=== PATIENT | female | born 1975 | race African-American/Black ===

== ENCOUNTER 2017-08-30 14:14 | Emergency (ER) | payer OTHER ==
[2017-08-30 14:52] LABS: Basophils % (Auto) 0.9 % (0.0-1.8); Eosinophils % (Auto) 4.4 % (0.0-4.3); Hematocrit 31.3 % (30.3-42.9); Hemoglobin 9.7 gm/dl (10.1-14.3); Mean Corpuscular HGB Conc 31 % (30-34); Mean Corpuscular Volume 74 fl (79-97); Platelet Count 148 K/mm3 (140-440); Red Blood Count 4.23 M/mm3 (3.65-5.03); Red Cell Distribution Width 16.1 % (13.2-15.2); White Blood Count 4.5 K/mm3 (4.5-11.0)
[2017-08-30 14:59] LABS: Mean Corpuscular Hemoglobin 23 pg (28-32)
[2017-08-30 15:01] LABS: INR 0.96 (0.87-1.13)
[2017-08-30 15:10] LABS: Alanine Aminotransferase 29 units/L (7-56); Albumin 3.6 g/dL (3.9-5); Albumin/Globulin Ratio 1.2 %; Alkaline Phosphatase 43 units/L (35-129); Anion Gap 17 mmol/L; BUN/Creatinine Ratio 11; Bilirubin,Total < 0.20 mg/dL (0.1-1.2); Blood Urea Nitrogen 9 mg/dL (7-17); Calcium 8.3 mg/dL (8.4-10.2); Carbon Dioxide 25 mmol/L (22-30); Chloride 103.7 mmol/L (98-107); Glucose 93 mg/dL (65-100); Potassium 4.3 mmol/L (3.6-5.0); Sodium 141 mmol/L (137-145); Total Protein 6.6 g/dL (6.3-8.2)
[2017-08-30 15:23] LABS: Bacteria,Urine 1+ /HPF (Negative); Bilirubin,Urine NEG (Negative); Blood,Urine NEG (Negative); Ketones,Urine TR mg/dL (Negative); Leukocyte Esterase,Urine NEG (Negative); Mucus,Urine FEW /HPF; Nitrite,Urine NEG (Negative); Protein,Urine <15 mg/dL mg/dL (Negative); Urobilinogen,Urine < 2.0 mg/dL (<2.0)
--- NOTE | 2017-08-30 15:47 | XRay Report ---
FINAL REPORT EXAM: XR CHEST ROUTINE 2V HISTORY: possible Sepsis,cough TECHNIQUE: Two views of the chest Comparison: None FINDINGS: Heart size is upper limits normal. There is mild bilateral reticular coarsening of the interstitium with peribronchial thickening but no discrete focal infiltrate. There are no pleural effusions. The imaged axial skeleton is unremarkable. There prominent nipple shadows. IMPRESSION: Peribronchial thickening and coarsening of the interstitium compatible with bronchitis and suggestive of interstitial lung disease/possible mild bronchiectasis. Heart size upper limits normal. Lungs are mildly hyperlucent and hyperexpanded compatible with either early emphysema, large voluntary inspiratory effort or air trapping.
--- NOTE | 2017-08-30 19:34 | Emergency Department Report ---
HPI - General Chief Complaint: Fever Time Seen by Provider: 08/30/17 18:54 - HPI HPI: This is a 41-year-old female who presents to the emergency department from home with complaint of a 3 to four-day history of a intermittent fever, headache and some body aches. She has a mild sore throat. She says that her temperature reached a MAXIMUM TEMPERATURE of 104 Fahrenheit but that it will go down with ibuprofen and/or Tylenol but then returns. She went to a urgent care yesterday and says that she had a negative flu test at that time. She denies any past medical history. No recent travel or sick contacts at home. She denies any cough, diarrhea, chest or abdominal pain, dysuria, vaginal bleeding or discharge. Regarding her headache, it is generalized in nature and she denies any associated blurry vision, slurred speech or any neurological deficits. ED Past Medical Hx - Past Medical History Previous Medical History?: No - Surgical History Additional Surgical History: tubal - Social History Smoking Status: Never Smoker Substance Use Type: None ED Review of Systems ROS: Stated complaint: FEVER Other details as noted in HPI Constitutional: fever. denies: weakness Eyes: denies: eye pain, eye discharge, vision change ENT: throat pain. denies: ear pain Respiratory: denies: cough, shortness of breath, wheezing Cardiovascular: denies: chest pain, palpitations Gastrointestinal: denies: abdominal pain, nausea, diarrhea Genitourinary: denies: urgency, dysuria, discharge Musculoskeletal: denies: back pain, joint swelling, arthralgia Skin: denies: rash, lesions Neurological: headache. denies: numbness, paresthesias Physical Exam - Physical Exam Vital Signs: Vital Signs 08/30/17 08/30/17 14:17 18:56 Temperature 98.6 F 99.6 F Pulse Rate 96 H Respiratory 18 Rate Blood Pressure 108/50 O2 Sat by Pulse 100 Oximetry Physical Exam: GENERAL: The patient is well-developed well-nourished. HENT: Normocephalic. Atraumatic. Patient has moist mucous membranes. Oropharynx is clear without tonsillar perjury, erythema or exudates. EYES: Extraocular motions are intact. Pupils equal reactive to light bilaterally. No nystagmus. NECK: Supple. Trachea is midline. No meningitic signs. CHEST/LUNGS: Clear to auscultation. There is no respiratory distress noted. HEART/CARDIOVASCULAR: Regular. There is no tachycardia. There is no murmur. ABDOMEN: Abdomen is soft, nontender. Patient has normal bowel sounds. There is no abdominal distention. SKIN: Skin is warm and dry. NEURO: The patient is awake, alert, and oriented. The patient is cooperative. The patient has no focal neurologic deficits. The patient has normal speech. Cranial nerves II through XII grossly intact. MUSCULOSKELETAL: There is no tenderness or deformity. There is no limitation range of motion. There is no evidence of acute injury. ED Course Vital Signs 08/30/17 08/30/17 14:17 18:56 Temperature 98.6 F 99.6 F Pulse Rate 96 H Respiratory 18 Rate Blood Pressure 108/50 O2 Sat by Pulse 100 Oximetry ED Medical Decision Making - Lab Data Result diagrams: 08/30/17 14:35 08/30/17 14:35 - EKG Data -: EKG Interpreted by Me EKG shows normal: sinus rhythm, axis, intervals, QRS complexes, ST-T waves Rate: normal - EKG Data When compared to previous EKG there are: previous EKG unavailable Interpretation: normal EKG - Radiology Data Radiology results: report reviewed, image reviewed interpreted by me: Chest x-ray does not show any acute process. There are no pleural effusions, obvious pneumonia and there is no pneumothorax. CT of the head does not show any acute intracranial process including no ischemia, shift, mass, bleeding or skull fracture. - Medical Decision Making This patient presents with a headache and the complaint of recurrent fevers. There is no fever in the emergency department. There is no focus of infection or fever seen on physical examination. CT of the head did not show any bleed, shift, mass or any acute process. Labs were unremarkable. She was negative for strep pharyngitis and influenza. Vital signs stable throughout ED course. She did not have any significant neck or back pain and she was low suspicion for meningitis. Most likely the patient has a nonspecific viral syndrome. She will use Tylenol and ibuprofen for fever and/or discomfort. She'll return to the ER with any worsening of her symptoms or any acute distress. She said that her headache had improved prior to discharge. She also said that the headache appeared to wax and wane along with the fevers. - Differential Diagnosis viral syndrome, tension headache, migraine Critical Care Time: No Critical care attestation.: If time is entered above; I have spent that time in minutes in the direct care of this critically ill patient, excluding procedure time. ED Disposition Clinical Impression: Intermittent fever, Body aches, Viral syndrome Headache Qualifiers: Headache type: unspecified Headache chronicity pattern: episodic headache Intractability: not intractable Qualified Code(s): R51 - Headache Disposition: DC-01 TO HOME OR SELFCARE Is pt being admited?: No Condition: Stable Instructions: Fever in Adults (ED), Acute Headache (ED), Viral Syndrome (ED) Additional Instructions: Please follow-up with your primary care physician in the next few days. Return to the emergency Department with any worsening of your symptoms or any acute distress. You can use Tylenol every 4 hours and ibuprofen every 6 hours, using weight-based dosing, as needed for fever or discomfort. Referrals: PRIMARY CARE, [Primary Care Provider] - [facility] Time of Disposition: 21:03
--- NOTE | 2017-08-30 19:57 | Cat Scan Report ---
FINAL REPORT EXAM: CT HEAD/BRAIN WO CON HISTORY: headache TECHNIQUE: Axial noncontrast CT images of the brain Total exam DLP 1016.77 mGy-cm Comparison: None FINDINGS: There is normal weston-white differentiation without midline shift or mass effect. There are no acute extra-axial fluid collections or intraparenchymal blood products. Ventricles and cisterns have normal size and configuration. Paranasal sinuses are well aerated. There is incidentally identified left greater than right internal carotid artery protrusion into an extremely pneumatized sphenoid bone. IMPRESSION: No acute bleed, transcortical infarct, or mass identified. No acute abnormality. Incidental identified normal anatomic variant of protrusion of the internal carotid arteries into pneumatized sphenoid bones.
[2017-08-30 20:06] VITALS: BP 109/61
== END 2017-08-30 21:10 | disposition home or self-care (01) ==
LOC: ED 14:14
DX: B34.9 Viral infection, unspecified (principal)
CPT/HCPCS: 36415; 70450; 71020; 80053; 81001; 82140; 82805; 84703; 85025; 85610; 87040; 87086; 87116; 87400; 87430; 93005; 93010; 99285

== ENCOUNTER 2018-03-14 02:04 | Emergency (ER) | payer OTHER ==
[2018-03-14 03:49] LABS: Basophils # (Auto) 0.1 K/mm3 (0.0-0.1); Basophils % (Auto) 0.8 % (0.0-1.8); Eosinophils # (Auto) 0.1 K/mm3 (0.0-0.4); Eosinophils % (Auto) 1.8 % (0.0-4.3); Hematocrit 33.2 % (30.3-42.9); Hemoglobin 10.2 gm/dl (10.1-14.3); Lymphocytes # (Auto) 2.3 K/mm3 (1.2-5.4); Lymphocytes % (Auto) 28.3 % (13.4-35.0); Mean Corpuscular HGB Conc 31 % (30-34); Mean Corpuscular Volume 72 fl (79-97); Monocytes # (Auto) 0.5 K/mm3 (0.0-0.8); Monocytes % (Auto) 6.4 % (0.0-7.3); Platelet Count 178 K/mm3 (140-440); Red Blood Count 4.64 M/mm3 (3.65-5.03); Red Cell Distribution Width 18.7 % (13.2-15.2)
[2018-03-14 03:55] LABS: Mean Corpuscular Hemoglobin 22 pg (28-32)
[2018-03-14 04:09] LABS: BUN/Creatinine Ratio 15; Blood Urea Nitrogen 9 mg/dL (7-17); Calcium 8.7 mg/dL (8.4-10.2); Hemolysis Index 3
[2018-03-14 07:06] VITALS: BP 102/54
--- NOTE | 2018-03-14 07:13 | Emergency Department Report ---
ED General Adult HPI - General Chief complaint: Overdose Stated complaint: GENERAL ILLNESS/POSSIBLE OD Time Seen by Provider: 03/14/18 07:05 Source: patient, EMS (ems notes not available at time of chart dictation), RN notes reviewed Mode of arrival: Stretcher Limitations: No Limitations - History of Present Illness Initial comments: This is a 42-year-old female, known to this provider previously, reports that she is not , denies chronic medical conditions, as per triage nurse documentation, per EMS, the patient's boyfriend was unsure if the patient's had a suicidal attempt. Patient apparently took 10 mL of NyQuil last night and 2 tablets of Advil to help with cough and cold symptoms. She states this was not a suicidal act, but rather an ax to obtain symptom relief from her cold, congestion, stuffy nose. She reports her cold symptoms are improved. She is not homicidal or suicidal, is not having hallucinations, denies access to guns or firearms. She denies headache, neck pain, chest pain, abdominal pain, shortness of breath, denies all complaints at this time, and would like to go home. Her symptoms did not have any exacerbating or relieving factors, and does not radiate anywhere. She is a symptomatic at this time. -: Gradual Severity scale (0 -10): 0 Quality: other Consistency: now resolved, other Improves with: other Worsens with: other Associated Symptoms: other. denies: confusion, chest pain, cough, diaphoresis, fever/chills, headaches, loss of appetite, malaise, nausea/vomiting, rash, seizure, shortness of breath, syncope, weakness - Related Data Allergies Allergy/AdvReac Type Severity Reaction Status Date / Time No Known Allergies Allergy Unverified 08/30/17 14:17 ED Review of Systems ROS: Stated complaint: GENERAL ILLNESS/POSSIBLE OD Other details as noted in HPI Comment: All other systems reviewed and negative ED Past Medical Hx - Surgical History Additional Surgical History: tubal - Social History Smoking Status: Never Smoker Substance Use Type: None ED Physical Exam - General Limitations: No Limitations General appearance: alert, in no apparent distress - Head Head exam: Present: atraumatic, normocephalic - Eye Eye exam: Present: normal appearance, PERRL, EOMI, other (visual acuity intact to finger counting, color perception, reading at a close distance). Absent: nystagmus - ENT ENT exam: Present: normal exam, normal orophraynx, mucous membranes moist, normal external ear exam - Neck Neck exam: Present: normal inspection, full ROM. Absent: tenderness, meningismus - Respiratory Respiratory exam: Present: normal lung sounds bilaterally. Absent: respiratory distress - Cardiovascular Cardiovascular Exam: Present: regular rate, normal rhythm, normal heart sounds. Absent: bradycardia, tachycardia, irregular rhythm, systolic murmur, diastolic murmur, rubs, gallop - GI/Abdominal GI/Abdominal exam: Present: soft, normal bowel sounds. Absent: distended, tenderness, guarding, rebound, rigid, pulsatile mass - Extremities Exam Extremities exam: Present: normal inspection, full ROM, normal capillary refill , other (there is no palpable cord. There is a negative Homans sign.). Absent : pedal edema, joint swelling, calf tenderness - Back Exam Back exam: Present: normal inspection, full ROM. Absent: tenderness, CVA tenderness (R), paraspinal tenderness, vertebral tenderness - Neurological Exam Neurological exam: Present: alert, oriented X3, CN II-XII intact, normal gait, other (Extraocular movements intact. Tongue midline. No facial droop. Facial sensation intact to light touch in the V1, V2, V3 distribution bilaterally. 5 and 5 strength in 4 extremities.. Sensation is intact to light touch in 4 extremities.). Absent: motor sensory deficit - Psychiatric Psychiatric exam: Present: normal affect, normal mood. Absent: homicidal ideation, suicidal ideation - Skin Skin exam: Present: warm, dry, intact, normal color. Absent: rash ED Course Vital Signs 03/14/18 03/14/18 03/14/18 02:20 04:00 04:26 Temperature 98.5 F 98 F Pulse Rate 80 62 Respiratory 14 18 14 Rate Blood Pressure 113/86 Blood Pressure 102/54 [Left] O2 Sat by Pulse 100 99 100 Oximetry - Reevaluation(s) Reevaluation #1: 03/14/18 07:54 Differential diagnosis, including but not limited to: Accidental overdose, medical clearance, general medical evaluation Assessment and plan: 42-year-old female status post probable accidental over ingestion of [id number] cough and cold medicine. The patient presented to me more than one hour after ingestion and is therefore not a charcoal candidate. She reports ingesting the medications as 10:00 PM on the preceding evening. She is not homicidal suicidal, she is clinically sober, she walks with a steady gait, and has no acute medical complaints at this time. Laboratory studies were unremarkable, she reports that she is not , her EKG is essentially unremarkable. There does not appear to be an emergent condition at this time, the patient is medically stable to follow-up in outpatient primary care doctor, the patient was instructed to be careful when consuming [id number] remedies. ED Medical Decision Making - Lab Data Result diagrams: 03/14/18 02:55 03/14/18 02:55 Vital Signs 03/14/18 03/14/18 03/14/18 02:20 04:00 04:26 Temperature 98.5 F 98 F Pulse Rate 80 62 Respiratory 14 18 14 Rate Blood Pressure 113/86 Blood Pressure 102/54 [Left] O2 Sat by Pulse 100 99 100 Oximetry Lab Results 03/14/18 03/14/18 03/14/18 Range/Units 02:55 02:55 02:55 WBC (4.5-11.0) K/mm3 RBC (3.65-5.03) M/mm3 Hgb (10.1-14.3) gm/dl Hct (30.3-42.9) % MCV (79-97) fl MCH (28-32) pg MCHC (30-34) % RDW (13.2-15.2) % Plt Count (140-440) K/mm3 Lymph % (Auto) (13.4-35.0) % [place] % (Auto) (0.0-7.3) % Eos % (Auto) (0.0-4.3) % Baso % (Auto) (0.0-1.8) % Lymph # (1.2-5.4) K/mm3 [place] # (0.0-0.8) K/mm3 Eos # (0.0-0.4) K/mm3 Baso # (0.0-0.1) K/mm3 Seg Neutrophils % (40.0-70.0) % Seg Neutrophils # (1.8-7.7) K/mm3 Sodium 136 L (137-145) mmol/L Potassium 3.6 (3.6-5.0) mmol/L Chloride 100.7 (98-107) mmol/L Carbon Dioxide 24 (22-30) mmol/L Anion Gap 15 mmol/L BUN 9 (7-17) mg/dL Creatinine 0.6 L (0.7-1.2) mg/dL Estimated GFR > 60 ml/min BUN/Creatinine Ratio 15 % Glucose 88 (65-100) mg/dL Calcium 8.7 (8.4-10.2) mg/dL Salicylates < 0.3 L (2.8-20.0) mg/dL Acetaminophen < 5.0 L (10.0-30.0) ug/mL Plasma/Serum Alcohol (0-0.07) % 03/14/18 03/14/18 Range/Units 02:55 02:55 WBC 8.0 (4.5-11.0) K/mm3 RBC 4.64 (3.65-5.03) M/mm3 Hgb 10.2 (10.1-14.3) gm/dl Hct 33.2 (30.3-42.9) % MCV 72 L (79-97) fl MCH 22 L (28-32) pg MCHC 31 (30-34) % RDW 18.7 H (13.2-15.2) % Plt Count 178 (140-440) K/mm3 Lymph % (Auto) 28.3 (13.4-35.0) % [place] % (Auto) 6.4 (0.0-7.3) % Eos % (Auto) 1.8 (0.0-4.3) % Baso % (Auto) 0.8 (0.0-1.8) % Lymph # 2.3 (1.2-5.4) K/mm3 [place] # 0.5 (0.0-0.8) K/mm3 Eos # 0.1 (0.0-0.4) K/mm3 Baso # 0.1 (0.0-0.1) K/mm3 Seg Neutrophils % 62.7 (40.0-70.0) % Seg Neutrophils # 5.0 (1.8-7.7) K/mm3 Sodium (137-145) mmol/L Potassium (3.6-5.0) mmol/L Chloride (98-107) mmol/L Carbon Dioxide (22-30) mmol/L Anion Gap mmol/L BUN (7-17) mg/dL Creatinine (0.7-1.2) mg/dL Estimated GFR ml/min BUN/Creatinine Ratio % Glucose (65-100) mg/dL Calcium (8.4-10.2) mg/dL Salicylates (2.8-20.0) mg/dL Acetaminophen (10.0-30.0) ug/mL Plasma/Serum Alcohol < 0.01 (0-0.07) % - EKG Data -: EKG Interpreted by Me EKG shows normal: sinus rhythm Rate: normal - EKG Data When compared to previous EKG there are: previous EKG unavailable 03/14/18 07:53 Normal sinus, 71 bpm, normal axis, normal intervals, incomplete right bundle branch block, abnormal EKG, not a STEMI Critical care attestation.: If time is entered above; I have spent that time in minutes in the direct care of this critically ill patient, excluding procedure time. ED Disposition Clinical Impression: General medical exam Disposition: DC-01 TO HOME OR SELFCARE Is pt being admited?: No Does the pt Need Aspirin: No Condition: Good Instructions: Nonprescription Medication Overdose in Children (ED) Additional Instructions: Make certain to exercise caution and restraint when taking [id number] medications. Make certain to take recommended amount and quantities. Follow up with a primary care doctor within the next month. Return to the ER right away with fevers, chills, lethargy, irritability, projectile vomiting, change in mental status, confusion,, Savella, suicidality, new, worsening or different symptoms. Referrals: PRIMARY CARE, [Primary Care Provider] - 3-5 Days SHAWANDA BARROSO MD [Staff Physician] - 3-5 Days
[2018-03-14 08:28] LABS: Bilirubin,Urine NEG (Negative); Blood,Urine NEG (Negative); Color,Urine Straw (Yellow); Protein,Urine <15 mg/dL mg/dL (Negative); Urobilinogen,Urine < 2.0 mg/dL (<2.0)
[2018-03-14 09:30] LABS: Amphetamine Screen,Urine PRESUMPTIVE NEGATIVE; Benzodiazepines Screen,Urine PRESUMPTIVE NEGATIVE; Cannabinoid Screen,Urine PRESUMPTIVE NEGATIVE; Cocaine Screen,Urine PRESUMPTIVE NEGATIVE; Methadone Screen,Urine PRESUMPTIVE NEGATIVE; Opiate Screen,Urine PRESUMPTIVE NEGATIVE
== END 2018-03-14 11:35 | disposition home or self-care (01) ==
LOC: ED 02:04
DX: T39.312A Poisoning by propionic acid derivatives, intentional self-harm, initial encounter (principal); Y92.89 Other specified places as the place of occurrence of the external cause
CPT/HCPCS: 36415; 80048; 80307; 81001; 85025; 93005; 93010; 99283; G0480; 80320